=== PATIENT | male | born 1955 | race Caucasian/White ===

== ENCOUNTER 2017-04-10 03:09 | Emergency (ER) | payer SELFPAY | END 2017-04-10 03:24 | disposition left against medical advice (07) | LOC: ER 03:09 | DX: R51 Headache (principal); Z53.21 Procedure and treatment not carried out due to patient leaving prior to being seen by health care provider ==

== ENCOUNTER 2021-07-01 19:47 | Emergency (ER) | payer MEDICARE, OTHER ==
[~2021-07-01] VITALS: Ht 182.9 cm; Wt 109.0 kg
[~2021-07-01 19:47] MED LIST: AMOX1TAB61 PO; LORA0.5T96 PO; MELA5TAB20 PO; METF10007 PO; MIDO10TA PO; OXYC10TA46 PO; OXYC5CAP PO; POTA20TA4 PO; PREG150C PO; THIA100T57 PO
--- NOTE | 2021-07-01 19:55 | PHYS DOC ---
Past Medical History Additional Past Medical Histor: CARDIOMYOPATHY, DYSPHAGIA, MULTIPLE FALLS, COG DEF, CAROTID STENOSIS Past Surgical History: Other Additional Past Surgical Histo: UNKNOWN Smoking Status: Unknown if ever smoked Alcohol Use: None General Adult HPI: HPI: Patient is a 65 year old male brought in by EMS from his snf facility for altered mental status. Per EMS, the patient snf facility staff called them and reported that he was found slumped over in his wheelchair, with minimal responsiveness. EMS reported that nursing staff noted a blood pressure in the 60s, systolic. He has not had hypotension for them, nor here. I actually admitted this patient here last week for altered mental status, healthcare associated pneumonia, hypoxic respiratory failure and inappropriate use of opioids and benzodiazepine medication. EMS initially called a code stroke, secondary to unequal pupil/anisocoria. 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 He has chronically larger left pupil than the right, this has been worked up previously multiple times, as per Dr. Gramajo. This is noted on my exam last week. I am unable to procure any meaningful information from the patient directly. He is protecting his airway. He opens his eyes, follows most commands, would not meaningfully verbally communicate, moans occasionally. Reportedly, the patient's roommate cheeks his benzodiazepine medication, and the patient is also prescribed benzodiazepines, and reportedly they share these medications together. When he was discharged from this facility within the last week, advance directive status to DNR/DNI. His paperwork accompanying hearing here today says full code. Per EMS, the nurse at his care facility reportedly did not know much about him as she said they had only been working there for 2 days. Review of Systems: Review of Systems: ROS is limited due to clinical condition and altered mental status and is noted as per HPI. Heart Score: C/O Chest Pain: N/A Risk Factors: Risk Factors: DM, Current or recent (<one month) smoker, HTN, HLP, family history of CAD, obesity. Risk Scores: Score 0 - 3: 2.5% MACE over next 6 weeks - Discharge Home Score 4 - 6: 20.3% MACE over next 6 weeks - Admit for Clinical Observation Score 7 - 10: 72.7% MACE over next 6 weeks - Early Invasive Strategies Allergies: Allergies: Allergies Coded Allergies Type Severity Reaction Last Updated Verified No Known Drug Allergies 06/24/21 No Physical Exam: PE: Constitutional: Well developed, well nourished, elderly male who appears chronically ill and appears older than stated age. HENT: Normocephalic, atraumatic, oropharynx is patent and clear, mucous membranes are moist. No oral trauma or bleeding. External ears are normal bilaterally. TMs are clear bilaterally. No otorrhea, no rhinorrhea, no epistaxis Eyes: There is anisocoria, left pupil being larger than the right. Pupils are equally reactive, both pupils are round. Extraocular movements are intact. Neck: Trachea is midline, no meningismus. Neck is supple without apparent tenderness. No JVD Cardiovascular:Heart rate regular rhythm, +2 radial and +2 posterior tibial pulses bilaterally. Lungs & Thorax: There is mild to moderate tachypnea. Diffuse bilateral coarse rhonchi are noted. No wheezes or stridor. Equal chest rise is noted. Abdomen: Abdomen is obese, soft, nondistended, no apparent tenderness to palpation. Skin: Warm, dry, no erythema, no rash. No jaundice. Back: No deformity. Extremities: No limb deformity. No peripheral edema. No apparent calf tenderness. Pelvis is stable. Neurologic: He is sleepy, drowsy. He awakens to voice, opens his eyes to voice. He localizes to pain. Gag reflex is intact. There is no facial asymmetry. He does appear to move all 4 extremities equally. He mumbles incoherently, no meaningful verbal response. He does follow some commands, such as taking deep breaths when asked to do so. He does open his mouth and cooperates with checking gag reflex and checking his oral temperature. Psychologic: Affect is flat. EKG: EKG: EKG is interpreted at 195 Rhythm is sinus Rate is 96 bpm QTc is 486 ms No STEMI Radiology/Procedures: Radiology/Procedures: IMAGING REPORT Signed PATIENT: TALAT REED EACCOUNT: [id number] : 1955 LOCATION: ER AGE: 65 SEX: M EXAM STATUS: PRE ER ORD. PHYSICIAN: MARIALUISA GRIMALDO DO REASON: altered mental status, DIFFICULTY COOPERATING PROCEDURE: CT HEAD WO CONTRAST EXAM: CT Head without IV contrast CLINICAL HISTORY: Reason: altered mental status, DIFFICULTY COOPERATING / Spl. Instructions: / History: COMPARISON: None. TECHNIQUE: Routine CT of the head without contrast. PQRS compliance statement - One or more of the following individualized dose reduction techniques were utilized for this study: 1. Automated exposure control 2. Adjustment of the mA and/or kV according to patient size 3. Use of iterative reconstruction technique FINDINGS: There is no evidence of hemorrhage, mass or extra-axial fluid collection. Osorio-white differentiation is maintained with no evidence of edema. Subcortical, periventricular as well as deep white matter foci of hypoattenuation likely changes of chronic small vessel disease. There is no mass effect or shift of the intracranial structures. The ventricles, basilar cisterns and cortical sulci are normal in size and configuration for the patients stated age. The cerebellum and brainstem are unremarkable. The calvarium demonstrates no evidence of fracture or focal lesion. Deformity of the nasal bone, nondisplaced, age-indeterminate nasal bone fracture. There is normal aeration of the visualized paranasal sinuses and mastoid air cells. The visualized portions of the orbits are normal. Atherosclerotic calcifications of the intracranial internal carotid and vertebral arteries is seen. IMPRESSION: 1. No evidence for acute intracranial process. 2. White matter changes likely chronic small vessel disease. 3. Deformity of the nasal bone, nondisplaced, age-indeterminate nasal bone fracture. Electronically signed by: Dennis Nicholas MD (07/01/2021 8:56 PM) [facility] DICTATED and SIGNED BY: DENNIS NICHOLAS MD IMAGING REPORT Signed PATIENT: TALAT REED EACCOUNT: [id number] : 1955 LOCATION: ER AGE: 65 SEX: M EXAM STATUS: PRE ER ORD. PHYSICIAN: MARIALUISA GRIMALDO DO REASON: AMS PROCEDURE: PORTABLE CHEST 1V XR CHEST 1V Clinical History: Reason: AMS / Spl. Instructions: / History: Technique: AP view of the chest was obtained at 07/01/2021 8:14 PM. Comparison: June 24, 2021. Findings: There is low lung volumes causing crowding of pulmonary vessels. This reticular opacities throughout the lungs. Impression: Chronic pulmonary fibrosis and low lung volumes. Stable appearance of the chest. Electronically signed by: Gloria Peace III, MD (07/01/2021 8:38 PM) [facility] DICTATED and SIGNED BY: GLORIA PEACE III, MD DATE: 07/01/21 [id number] 0 Course & Med Decision Making: Course & Med Decision Making Pertinent Labs and Imaging studies reviewed. (See chart for details) The patient is progressively improved while here. He manifests no evidence of hypoxia, he is not requiring supplemental oxygen here, oxygen saturation 95 to 96% on room air. He does have oxygen that he uses routinely available to him at his care facility. Laboratory exams are unremarkable and actually improved from when I saw him a week ago. Chest x-ray is also improved. He is now awake, alert, following all commands, trying to get up out of bed, but he is redirectable. I explained to him that I do not see any indication for admission to the hospital. He has manifested no evidence of hypoxia, respiratory distress, no evidence of hypotension. I spoke with Dr. Gramajo, I informed him of the findings here. I believe the patient is stable to return back to his snf facility, Dr. Gramajo agrees. I informed the patient of this, he agrees as well. He reports no complaints. I do suspect polypharmacy and sedating medication such as benzodiazepines are contributing at least in part, if not fully to these recurring issues. Dragon Disclaimer: Sydni Disclaimer: This electronic medical record was generated, in whole or in part, using a voice recognition dictation system. Departure Departure Impression: Primary Impression: Altered mental status Qualified Codes: R41.82 - Altered mental status, unspecified Additional Impressions: Benzodiazepine dependence Anisocoria Disposition: [facility] Condition: STABLE Referrals: SPENCER GRAMAJO MD (PCP) Patient Instructions: Confusion, Weakness Additional Instructions: You will be returning back home to your snf facility. Your pupil changes are chronic for you, and these findings are well-known to your doctors. Your CAT scan of your head is normal today. Your chest x-ray is unremarkable, your pneumonia appears to be resolved. Your oxygen levels have been stable here, on room air. Your blood pressure has been stable. Your heart enzymes are improved from when you were admitted here last week. There is no current indication for you to be admitted to the hospital again, based on your current presentation. I do suspect that your medications, specifically your benzodiazepines, are contributing to excess sedation and weakness symptoms. Please review your medications with your primary care physician, Dr. Gramajo. MARIALUISA GRIMALDO DO Jul 01, 2021 19:55
--- NOTE | 2021-07-01 20:40 | RAD ---
XR CHEST 1V Clinical History: Reason: AMS / Spl. Instructions: / History: Technique: AP view of the chest was obtained at 07/01/2021 8:14 PM. Comparison: June 24, 2021. Findings: There is low lung volumes causing crowding of pulmonary vessels. This reticular opacities throughout the lungs. Impression: Chronic pulmonary fibrosis and low lung volumes. Stable appearance of the chest. Electronically signed by: Khanh Solano III, MD (07/01/2021 8:38 PM) [facility]
--- NOTE | 2021-07-01 20:59 | RAD ---
EXAM: CT Head without IV contrast CLINICAL HISTORY: Reason: altered mental status, DIFFICULTY COOPERATING / Spl. Instructions: / Histo ry: COMPARISON: None. TECHNIQUE: Routine CT of the head without contrast. PQRS compliance statement - One or more of the following individualized dose reduction techniques wer e utilized for this study: 1. Automated exposure control 2. Adjustment of the mA and/or kV according to patient size 3. Use of iterative reconstruction technique FINDINGS: There is no evidence of hemorrhage, mass or extra-axial fluid collection. Osorio-white differentiation is maintained with no evidence of edema. Subcortical, periventricular as w ell as deep white matter foci of hypoattenuation likely changes of chronic small vessel disease. There is no mass effect or shift of the intracranial structures. The ventricles, basilar cisterns and cortical sulci are normal in size and configuration for the estrada ents stated age. The cerebellum and brainstem are unremarkable. The calvarium demonstrates no evidence of fracture or focal lesion. Deformity of the nasal bone, nond isplaced, age-indeterminate nasal bone fracture. There is normal aeration of the visualized paranasal sinuses and mastoid air cells. The visualized portions of the orbits are normal. Atherosclerotic calcifications of the intracranial internal carotid and vertebral arteries is seen. IMPRESSION: 1. No evidence for acute intracranial process. 2. White matter changes likely chronic small vessel disease. 3. Deformity of the nasal bone, nondisplaced, age-indeterminate nasal bone fracture. Electronically signed by: Dennis Madrigal MD (07/01/2021 8:56 PM) [facility]
[2021-07-01 21:58] LABS: BASO # 0.2 x10^3/uL (0.0-0.2); BASO % 1 % (0-3); EOS # 0.7 x10^3/uL (0.0-0.7); EOS % 3 % (0-3); HEMATOCRIT 38.2 % (39.0-53.0); HEMOGLOBIN 12.2 g/dL (13.0-17.5); LYMPH # 2.9 x10^3/uL (1.0-4.8); LYMPH % 13 % (24-48); MEAN CORPUSCULAR HEMOGLOBIN 25 pg (25-35); MEAN CORPUSCULAR HGB CONC 32 g/dL (31-37); MEAN CORPUSCULAR VOLUME 79 fL (79-100); MONO # 2.5 x10^3/uL (0.0-1.1); MONO % 11 % (0-9); NEUT # 15.9 x10^3/uL (1.8-7.7); NEUT % 71 % (31-73); PLATELET COUNT 151 x10^3/uL (140-400); RED BLOOD COUNT 4.85 x10^6/uL (4.30-5.70); RED CELL DISTRIBUTION WIDTH 19.2 % (11.5-14.5); WHITE BLOOD COUNT 22.2 x10^3/uL (4.0-11.0)
[2021-07-01 22:00] LABS: CALCIUM 8.9 mg/dL (8.5-10.1); CREATININE 1.2 mg/dL (0.7-1.3); GFR 60.8; POTASSIUM 3.9 mmol/L (3.5-5.1)
[2021-07-01 22:07] LABS: ALBUMIN 2.6 g/dL (3.4-5.0); ALBUMIN/GLOBULIN RATIO 0.6 (1.0-1.7); TOTAL BILIRUBIN 0.5 mg/dL (0.2-1.0); TOTAL PROTEIN 7.1 g/dL (6.4-8.2)
[2021-07-01 22:28] LABS: % EOS 5 % (0-5); % LYMPHS 13 % (24-48); % MONOS 8 % (0-10); % SEGS 74 % (35-66); ANISOCYTOSIS SLIGHT; PLT ESTIMATE ADEQUATE (ADEQUATE)
[2021-07-01 23:20] LABS: BILIRUBIN,URINE NEGATIVE (NEG); CLARITY,URINE CLEAR; COLOR,URINE YELLOW; NITRITE,URINE NEGATIVE (NEG); PH,URINE 5.5 (<5.0-8.0); PROTEIN,URINE NEGATIVE (NEG-TRACE); UROBILINOGEN,URINE 0.2 mg/dL (0.2 mg/dL)
[2021-07-01 23:25] LABS: BACTERIA,URINE 0 /HPF (0-FEW); BARBITURATES NEG (NEG); BENZODIAZEPINES POS (NEG); CANNABINOIDS NEG (NEG); COCAINE NEG (NEG); METHADONE NEG (NEG); OPIATES NEG (NEG); PHENCYCLIDINE NEG (NEG); RBC,URINE 0 /HPF (0-2)
[2021-07-01 23:32] LABS: AMPHETAMINE/METHAMPHETAMINE NEG (NEG)
--- NOTE | 2021-07-02 00:57 | EKG ---
[facility] [address] [place] [address] Test Date: 2021-07-01 Test Time: 19:56:58 Pat Name: TALAT REED Department: Room: Gender: M Bingo Clerk: : 1955 Requested By: MARIALUISA GRIMALDO Order Number: [id number] Reading MD: Measurements Intervals [place] Rate: 96 P: 38 LA: 148 QRS: 3 QRSD: 86 T: 69 QT: 384 QTc: 486 Interpretive Statements SINUS RHYTHM PROLONGED QT NO SPECIFIC ECG ABNORMALITIES RI6.02 No previous ECG available for comparison
[2021-07-02 01:00] VITALS: BP 164/70
== END 2021-07-02 01:09 ==
LOC: ER 19:47
DX: R41.82 Altered mental status, unspecified (principal); F13.20 Sedative, hypnotic or anxiolytic dependence, uncomplicated; H57.02 Anisocoria
CPT/HCPCS: 36415; 51701; 70450; 71045; 80053; 80307; 81001; 82140; 82550; 83880; 84484; 85007; 85025; 93005; 96374; 96375; 99285; G0480